=== PATIENT | male | born 1965 | race African-American/Black ===

== ENCOUNTER 2021-09-14 11:05 | Emergency (ER) | payer OTHER ==
[2021-09-14 11:50] LABS: #Basophils 0.1 10x3/uL (0.0-0.2); #Eosinphils 0.1 10x3/uL (0.0-0.5); #Monocytes 0.9 10x3/uL (0.0-1.1); #Neutrophils 5.9 10x3/uL (1.5-8.4); %Basophils 0.6 % (0.0-2.0); %Eosinophils 1.6 % (0.0-6.0); %Lymphocytes 21.7 % (18.0-47.0); %Monocytes 9.5 % (0.0-10.0); Hemoglobin 13.3 g/dL (13.5-17.5); Mean Corpuscular HGB CONC 32.7 g/dL (32.0-36.0); Mean Corpuscular Hemoglobin 26.3 pg (27.0-33.0); Mean Corpuscular Volume 80.6 fl (81.2-95.1); Mean Platelet Volume 9.4 fl (7.4-10.4); Platelet Count 263 10x3/uL (150-450); RBC Distribution Width 14.6 % (11.5-14.5); Red Blood Cell (RBC) Count 5.05 10x6/uL (4.32-5.72)
[2021-09-14 12:07] LABS: ALT (SGPT) 47 U/L (8-55); AST (SGOT) 42 U/L (5-34); Albumin 3.9 g/dL (3.5-5.0); Alkaline Phosphatase 81 U/L (40-110); Anion Gap 15 mmol/L (10-20); BUN (Urea Nitrogen) 17 mg/dL (8.4-25.7); Bilirubin, Total 0.5 mg/dL (0.2-1.2); Calc. Creatinine Clearance 0 mL/min (70-130); Calcium 8.7 mg/dL (7.8-10.44); Carbon Dioxide 23 mmol/L (22-29); Chloride 106 mmol/L (98-107); Globulin 3.8 g/dL (2.4-3.5); Glucose 97 mg/dL (70-105); Lipase 148 U/L (8-78); Potassium 3.7 mmol/L (3.5-5.1); Protein, Total 7.7 g/dL (6.0-8.3); Sodium 140 mmol/L (136-145)
== END 2021-09-14 14:10 ==
LOC: CSHERS 11:05
DX: R07.89 Other chest pain (principal); E11.9 Type 2 diabetes mellitus without complications; I25.10 Atherosclerotic heart disease of native coronary artery without angina pectoris
CPT/HCPCS: 36415; 71045; 80053; 83690; 84484; 85025; 85379; 93005; 94760

== ENCOUNTER 2021-12-26 21:40 | Emergency (ER) | payer OTHER ==
[2021-12-26] MEDS ORDERED: Ketorolac Tromethamine 30 MG/ML VIAL ONE (22:15)
[2021-12-26 22:44] LABS: #Basophils 0.1 10x3/uL (0.0-0.2); #Eosinphils 0.1 10x3/uL (0.0-0.5); #Monocytes 1.5 10x3/uL (0.0-1.1); #Neutrophils 8.5 10x3/uL (1.5-8.4); %Basophils 0.4 % (0.0-2.0); %Eosinophils 1.2 % (0.0-6.0); %Lymphocytes 15.5 % (18.0-47.0); %Monocytes 12.2 % (0.0-10.0); %Neutrophils 70.2 % (40.0-75.0); Hemoglobin 13.2 g/dL (13.5-17.5); Mean Corpuscular Hemoglobin 26.7 pg (27.0-33.0); Mean Corpuscular Volume 80.8 fl (81.2-95.1); Mean Platelet Volume 9.5 fl (7.4-10.4); Platelet Count 274 10x3/uL (150-450); RBC Distribution Width 15.2 % (11.5-14.5); Red Blood Cell (RBC) Count 4.95 10x6/uL (4.32-5.72); White Blood Cell (WBC) Count 12.1 10x3/uL (3.5-10.5)
[2021-12-26 22:56] LABS: ALT (SGPT) 10 U/L (8-55); AST (SGOT) 14 U/L (5-34); Albumin 3.8 g/dL (3.5-5.0); Alkaline Phosphatase 62 U/L (40-110); Anion Gap 14 mmol/L (10-20); BUN (Urea Nitrogen) 16 mg/dL (8.4-25.7); Bilirubin, Total 0.8 mg/dL (0.2-1.2); Calc. Creatinine Clearance 0 mL/min (70-130); Calcium 8.8 mg/dL (7.8-10.44); Carbon Dioxide 25 mmol/L (22-29); Chloride 103 mmol/L (98-107); Estimated GFR 80; Globulin 3.1 g/dL (2.4-3.5); Glucose 85 mg/dL (70-105); Lipase 80 U/L (8-78); Potassium 4.1 mmol/L (3.5-5.1); Protein, Total 6.9 g/dL (6.0-8.3); Sodium 138 mmol/L (136-145)
[2021-12-26 23:52] LABS: SARS-CoV-2 NAA Rapid Test Not Detected (NotDetected)
[2021-12-27 02:17] LABS: Troponin I Less than 0.010 ng/mL (< 0.028)
== END 2021-12-27 03:04 ==
LOC: CSHERS 21:40
DX: R07.9 Chest pain, unspecified (principal); R06.02 Shortness of breath; R11.0 Nausea; I25.10 Atherosclerotic heart disease of native coronary artery without angina pectoris; E11.9 Type 2 diabetes mellitus without complications; K21.9 Gastro-esophageal reflux disease without esophagitis; E78.5 Hyperlipidemia, unspecified; Z79.899 Other long term (current) drug therapy; Z20.822 Contact with and (suspected) exposure to COVID-19
CPT/HCPCS: 71045; 80053; 83690; 83880; 84484; 85025; 93005; 96374; J1885; U0002

== ENCOUNTER 2021-12-27 12:01 | Observation (INO) | payer OTHER ==
[2021-12-27] MEDS ORDERED: Ketorolac Tromethamine 30 MG/ML VIAL ONE (15:45)
[2021-12-27 16:54] LABS: #Eosinphils 0.2 10x3/uL (0.0-0.5); #Monocytes 1.2 10x3/uL (0.0-1.1); #Neutrophils 7.6 10x3/uL (1.5-8.4); %Basophils 0.4 % (0.0-2.0); %Eosinophils 1.7 % (0.0-6.0); %Lymphocytes 13.7 % (18.0-47.0); %Monocytes 11.7 % (0.0-10.0); %Neutrophils 72.2 % (40.0-75.0); Hemoglobin 13.5 g/dL (13.5-17.5); Mean Corpuscular HGB CONC 32.5 g/dL (32.0-36.0); Mean Corpuscular Hemoglobin 26.6 pg (27.0-33.0); Mean Corpuscular Volume 81.9 fl (81.2-95.1); Mean Platelet Volume 10.1 fl (7.4-10.4); Platelet Count 284 10x3/uL (150-450); RBC Distribution Width 15.3 % (11.5-14.5); Red Blood Cell (RBC) Count 5.07 10x6/uL (4.32-5.72); White Blood Cell (WBC) Count 10.5 10x3/uL (3.5-10.5)
[2021-12-27 17:03] LABS: ALT (SGPT) 11 U/L (8-55); AST (SGOT) 15 U/L (5-34); Albumin 3.8 g/dL (3.5-5.0); Alkaline Phosphatase 70 U/L (40-110); Anion Gap 14 mmol/L (10-20); BUN (Urea Nitrogen) 16 mg/dL (8.4-25.7); Bilirubin, Total 1.2 mg/dL (0.2-1.2); Calc. Creatinine Clearance 0 mL/min (70-130); Calcium 8.6 mg/dL (7.8-10.44); Carbon Dioxide 24 mmol/L (22-29); Chloride 103 mmol/L (98-107); Estimated GFR 84; Globulin 2.9 g/dL (2.4-3.5); Glucose 103 mg/dL (70-105); Potassium 4.1 mmol/L (3.5-5.1); Protein, Total 6.7 g/dL (6.0-8.3); Sodium 137 mmol/L (136-145)
[2021-12-27] MEDS ORDERED: Ondansetron PF 4 MG/2 ML Vial IVP PRN (19:28)
[2021-12-27] MEDS ORDERED: Nitroglycerin 0.4 MG TAB (25 Tab Bottle) SL PRN (19:28)
[2021-12-27 20:29] LABS: Troponin I Less than 0.010 ng/mL (< 0.028)
[2021-12-27] MEDS ORDERED: Sodium Chloride 0.65% Nasal 44 ML BOT EA NARE PRN (21:02)
[2021-12-27] MEDS ORDERED: HumaLOG 300 UNITS/3 ML VIAL SC PRN ×2 (21:43)
[2021-12-27] MEDS ORDERED: Dextrose 5% in Water 1,000 ML IV PRN (21:43)
[2021-12-27] MEDS ORDERED: Dextrose 50% Abboject 50 ML SYRINGE SLOW IVP PRN (21:43)
[2021-12-27] MEDS ORDERED: Pantoprazole 40 MG VIAL ONE (22:15)
[2021-12-27] MEDS ORDERED: Oxymetazoline HCl 0.05% ( 15 ML ) NASAL SCH (22:15)
[2021-12-27] MEDS ORDERED: Oxymetazoline HCl 0.05% ( 15 ML ) ONE (22:15)
[2021-12-27 22:40] LABS: Troponin I Less than 0.010 ng/mL (< 0.028)
[2021-12-28 03:57] LABS: #Eosinphils 0.2 10x3/uL (0.0-0.5); #Monocytes 0.9 10x3/uL (0.0-1.1); #Neutrophils 7.9 10x3/uL (1.5-8.4); %Basophils 0.3 % (0.0-2.0); %Eosinophils 1.9 % (0.0-6.0); %Lymphocytes 9.8 % (18.0-47.0); %Monocytes 8.6 % (0.0-10.0); Mean Corpuscular HGB CONC 32.6 g/dL (32.0-36.0); Mean Corpuscular Hemoglobin 26.4 pg (27.0-33.0); Mean Platelet Volume 9.8 fl (7.4-10.4); Platelet Count 294 10x3/uL (150-450); RBC Distribution Width 14.9 % (11.5-14.5); Red Blood Cell (RBC) Count 5.31 10x6/uL (4.32-5.72); White Blood Cell (WBC) Count 10.1 10x3/uL (3.5-10.5)
[2021-12-28 04:11] LABS: Anion Gap 14 mmol/L (10-20); BUN (Urea Nitrogen) 16 mg/dL (8.4-25.7); Calc. Creatinine Clearance 0 mL/min (70-130); Calcium 8.8 mg/dL (7.8-10.44); Carbon Dioxide 22 mmol/L (22-29); Chloride 105 mmol/L (98-107); Estimated GFR 96; Glucose 117 mg/dL (70-105); Potassium 4.2 mmol/L (3.5-5.1); Sodium 137 mmol/L (136-145)
[2021-12-28] MEDS: Acetaminophen 325 MG TAB PO PRN ×2 (06:20→13:15)
[2021-12-28] MEDS ORDERED: Acetaminophen 325 MG TAB ONE ×2 (06:25→13:26)
[2021-12-28] MEDS ORDERED: Metoprolol Tartrate 25 MG TAB ONE (07:59)
[2021-12-28] MEDS ORDERED: Enoxaparin Sodium 40 MG/0.4 ML SYRINGE ONE (07:59)
[2021-12-28] MEDS ORDERED: hydrALAZINE 25 MG TAB ONE (08:00)
[2021-12-28] MEDS ORDERED: HYDROcodone/Acetaminophen 5/325 mg Tablet PO PRN (08:27)
[2021-12-28] MEDS ORDERED: Morphine 2 MG/ML VIAL SLOW IVP PRN (08:27)
[2021-12-28] MEDS: Metoprolol Tartrate 25 MG TAB PO SCH ×2 (09:00→23:28)
[2021-12-28] MEDS: hydrALAZINE 25 MG TAB PO SCH ×2 (09:00→23:28)
[2021-12-28] MEDS: Enoxaparin Sodium 40 MG/0.4 ML SYRINGE SC SCH (09:00)
[2021-12-28] MEDS: Lisinopril 2.5 MG TAB PO SCH (09:00)
[2021-12-28] MEDS ORDERED: Iopamidol 300 61% 100 ML VIAL FS ONE (14:49)
[2021-12-28] MEDS ORDERED: Morphine 2 MG/ML VIAL ONE (16:44)
[2021-12-28] MEDS ORDERED: Bisacodyl 10 MG SUPP PR SCH (17:00)
[2021-12-28] MEDS ORDERED: Magnesium Citrate 300 ML BOT PO SCH (17:00)
[2021-12-28] MEDS: Senokot S 8.6-50 MG TAB PO SCH (20:42)
[2021-12-28] MEDS ORDERED: Atorvastatin Calcium 40 MG TAB PO SCH (21:00)
[2021-12-29] MEDS ORDERED: Oxymetazoline HCl 0.05% ( 15 ML ) NASAL SCH (03:00)
[2021-12-29] MEDS ORDERED: guaiFENesin/DM ER PO PRN (03:02)
[2021-12-29 04:28] VITALS: BMI 36.1
[2021-12-29] MEDS: Senokot S 8.6-50 MG TAB PO SCH (10:35)
[2021-12-29] MEDS: Enoxaparin Sodium 40 MG/0.4 ML SYRINGE SC SCH (10:35)
[2021-12-29] MEDS: Metoprolol Tartrate 25 MG TAB PO SCH (10:35)
[2021-12-29] MEDS ORDERED: guaiFENesin ER 600 MG TAB PO SCH (11:00)
[2021-12-29] MEDS: Lisinopril 2.5 MG TAB PO SCH (11:04)
[2021-12-29] MEDS: hydrALAZINE 25 MG TAB PO SCH (11:04)
[2021-12-29 16:27] VITALS: BP 106/61; TEMP 98.4
== END 2021-12-29 18:25 | disposition home or self-care (01) ==
LOC: CSHERS 12:01 → EEVIPCON 20:22 → INTOOBSV 20:22 → CSHERHOLD 20:22 → CSHTELE 12-28 18:48
PROVIDERS: ADMIT Family Medicine; ATTEND Family Medicine
DX: R07.89 Other chest pain (principal); R10.31 Right lower quadrant pain; R10.32 Left lower quadrant pain; K59.00 Constipation, unspecified; I25.10 Atherosclerotic heart disease of native coronary artery without angina pectoris; E11.9 Type 2 diabetes mellitus without complications; I10 Essential (primary) hypertension; J20.9 Acute bronchitis, unspecified; E78.5 Hyperlipidemia, unspecified; K21.9 Gastro-esophageal reflux disease without esophagitis; Z87.891 Personal history of nicotine dependence; Z79.84 Long term (current) use of oral hypoglycemic drugs; Z79.899 Other long term (current) drug therapy; Z88.0 Allergy status to penicillin; Z20.822 Contact with and (suspected) exposure to COVID-19; R06.02 Shortness of breath; R11.0 Nausea
CPT/HCPCS: 36415; 36416; 71045; 74018; 74177; 80048; 80053; 83690; 83880; 84484; 85025; 85379; 90471; 90732; 93005; 94640; 94760; 96372; 96374; 96375; C9113; G0009; G0378; J1650; J1885; J2270; J7620; Q9967; U0002; U0003; U0005

== ENCOUNTER 2022-06-30 15:14 | Emergency (ER) | payer OTHER ==
[2022-06-30] MEDS ORDERED: Ketorolac Tromethamine 30 MG/ML VIAL ONE (16:56)
== END 2022-06-30 16:45 ==
LOC: EEVIPCON 15:14 → CSHERS 15:14
DX: M17.12 Unilateral primary osteoarthritis, left knee (principal); I10 Essential (primary) hypertension; E11.9 Type 2 diabetes mellitus without complications; I25.10 Atherosclerotic heart disease of native coronary artery without angina pectoris; K21.9 Gastro-esophageal reflux disease without esophagitis; Z79.899 Other long term (current) drug therapy; Z79.84 Long term (current) use of oral hypoglycemic drugs
CPT/HCPCS: 96372; J1885

== ENCOUNTER 2023-01-27 14:44 | Observation (INO) | payer OTHER ==
[2023-01-27] MEDS ORDERED: Morphine 4 MG/ML VIAL ONE (15:10)
[2023-01-27] MEDS ORDERED: Morphine 2 MG/ML VIAL ONE (15:10)
[2023-01-27 16:28] LABS: #Monocytes 0.9 10x3/uL (0.0-1.1); #Neutrophils 12.6 10x3/uL (1.5-8.4); %Basophils 0.2 % (0.0-2.0); %Lymphocytes 7.6 % (18.0-47.0); %Monocytes 5.9 % (0.0-10.0); %Neutrophils 85.8 % (40.0-75.0); Hematocrit 44.7 % (38.8-50.0); Hemoglobin 14.3 g/dL (13.5-17.5); Mean Corpuscular Hemoglobin 26.3 pg (27.0-33.0); Mean Corpuscular Volume 82.2 fl (81.2-95.1); Mean Platelet Volume 9.7 fl (7.4-10.4); Platelet Count 297 10x3/uL (150-450); RBC Distribution Width 14.4 % (11.5-14.5); Red Blood Cell (RBC) Count 5.44 10x6/uL (4.32-5.72); White Blood Cell (WBC) Count 14.6 10x3/uL (3.5-10.5)
[2023-01-27 16:47] LABS: ALT (SGPT) 32 U/L (8-55); AST (SGOT) 27 U/L (5-34); Albumin 4.2 g/dL (3.5-5.0); Alkaline Phosphatase 86 U/L (40-110); Anion Gap 15 mmol/L (10-20); BUN (Urea Nitrogen) 9 mg/dL (8.4-25.7); Calc. Creatinine Clearance 0 mL/min (70-130); Calcium 9.1 mg/dL (7.8-10.44); Carbon Dioxide 24 mmol/L (22-29); Chloride 103 mmol/L (98-107); Estimated GFR 84; Globulin 4.2 g/dL (2.4-3.5); Glucose 133 mg/dL (70-105); Potassium 3.9 mmol/L (3.5-5.1); Protein, Total 8.4 g/dL (6.0-8.3); Sodium 138 mmol/L (136-145)
[2023-01-27] MEDS ORDERED: PROPOFOL 20 ML ONE ×2 (16:54→17:30)
[2023-01-27] MEDS ORDERED: fentaNYL 50 mcg/mL 1 mL Vial ONE ×2 (16:54→18:12)
[2023-01-27] MEDS ORDERED: Ondansetron PF 4 MG/2 ML Vial ONE ×2 (16:55→17:00)
[2023-01-27] MEDS ORDERED: Rocuronium Bromide 10 MG/ML (10ML VIAL) ONE (16:55)
[2023-01-27] MEDS ORDERED: Dexamethasone 4 mg/ml Vial ONE ×2 (16:55→17:00)
[2023-01-27] MEDS ORDERED: Succinylcholine 200 MG/10 ml SYRINGE FS ONE (16:56)
[2023-01-27] MEDS ORDERED: Lidocaine 1% PF 5 ML VIAL ONE (16:57)
[2023-01-27] MEDS ORDERED: Ketorolac Tromethamine 30 MG/ML VIAL ONE (17:00)
[2023-01-27] MEDS ORDERED: Glycopyrrolate 0.2 MG/ML 5 ML SYRINGE ONE (17:16)
[2023-01-27] MEDS ORDERED: SUGAMMADEX SODIUM 200 MG/2 ML VIAL ONE (17:40)
[2023-01-27] MEDS ORDERED: Ibuprofen 600 MG TAB PO PRN (17:42)
[2023-01-27] MEDS ORDERED: ceFOXitin 1 GM VIAL ONE ×2 (17:45→18:03)
[2023-01-27 19:57] VITALS: BMI 39.5
[2023-01-27] MEDS: Metoprolol Tartrate 25 MG TAB PO SCH (20:20)
[2023-01-27] MEDS ORDERED: Atorvastatin Calcium 40 MG TAB PO SCH (21:00)
[2023-01-27] MEDS ORDERED: Terazosin HCl 1 MG CAP PO SCH (21:00)
[2023-01-27] MEDS: Acetaminophen 325 MG TAB PO SCH (23:42)
[2023-01-28] MEDS: cefOXitin Sodium/Dextrose,Iso 2 GM in Premix Bag 1 BAG IVPB SCH ×3 (02:00→18:51)
[2023-01-28] MEDS: Acetaminophen 325 MG TAB PO SCH ×3 (05:32→18:52)
[2023-01-28] MEDS ORDERED: Sertraline 100 MG TAB PO SCH (09:00)
[2023-01-28] MEDS: Metoprolol Tartrate 25 MG TAB PO SCH (09:43)
[2023-01-28 17:40] VITALS: BP 101/59; TEMP 97.5
== END 2023-01-28 19:00 ==
LOC: CSHERS 14:44 → CSHTELE 19:48
PROVIDERS: ADMIT Surgery; ATTEND Surgery
PROC: 0DCP0ZZ Extirpation of Matter from Rectum, Open Approach (ICD-10-PCS; principal; 2023-01-27)
DX: T18.5XXA Foreign body in anus and rectum, initial encounter (principal); E11.9 Type 2 diabetes mellitus without complications; I10 Essential (primary) hypertension; I25.10 Atherosclerotic heart disease of native coronary artery without angina pectoris; J45.909 Unspecified asthma, uncomplicated; K21.9 Gastro-esophageal reflux disease without esophagitis; E66.01 Morbid (severe) obesity due to excess calories; Z68.39 Body mass index [BMI] 39.0-39.9, adult; Z88.0 Allergy status to penicillin; Z79.84 Long term (current) use of oral hypoglycemic drugs; Z79.899 Other long term (current) drug therapy
CPT/HCPCS: 74176; 80053; 85025; 88300; 96372; 96374; 96376; G0378; J0694; J1100; J1650; J1885; J2270; J2272; J2405; J2704; J3010